=== PATIENT | male | born 1960 | race Caucasian/White ===

== ENCOUNTER 2021-07-20 15:25 | Emergency (ER) | payer OTHER, SELFPAY ==
--- NOTE | ~2021-07-20 | XR_ITS ---
EXAMINATION: XR chest 2V DATE: 07/20/2021 16:34 INDICATION: Shortness of breath TECHNIQUE: frontal and lateral views of the chest were obtained. COMPARISON: None FINDINGS: There are few scattered bilateral calcified pulmonary nodules consistent with old granulomatous disea se. No other airspace opacities, pulmonary edema, pleural effusion or pneumothorax. The cardiomediast inal silhouette is normal. Mild thoracic spondylosis. IMPRESSION: 1. No acute cardiopulmonary disease. Reviewed, dictated and finalized at location B. [facility]
[2021-07-20 15:36] VITALS: BP 111/76; PULSE 102; RESP 24; TEMP 37.2; O2SAT 99
--- NOTE | 2021-07-20 16:34 | ED.URI ---
HPI - URI/Sore Throat General Chief Complaint: Upper Respiratory Infection Stated Complaint: cough,chest pain Source: patient, family and RN notes reviewed Mode of arrival: ambulatory History of Present Illness HPI Narrative: This is a 60-year-old male who presented to urgent care with complaints of shortness of breath, cough productive, rib discomfort due to coughing or with deep breathing, and headache. According to patient he did a telehealth visit online and was prescribed doxycycline for upper respiratory infections he was unable to get his doxycycline which was ordered on Friday because it was supposed to come through the mail. Patient is very anxious, he has refused to be tested for Covid or pneumonia. He was instructed several times to keep his mass in place. The patient denies CP, palpitation, extremity numbness, lightheadedness, dizziness, constipation, diarrhea, chills, or fever. Related Data Allergies Allergy/AdvReac Type Severity Reaction Status Date / Time naproxen [From Naprosyn] Allergy Rash Verified 07/20/21 15:50 Review of Systems Review of Systems: A 14 organ system Review of Systems was performed and pertinent positives included in the HPI, otherwise remaining ROS is negative. [facility] Family History Family History (Updated 07/20/21 @ 16:36 by SERGE Daly-C) Other Family history non-contributory Exam Narrative: GENERAL: This is a well-nourished, well-developed patient, in no apparent distress. HEAD: normocephalic, atraumatic. EYES: PERRL. Sclera clear/white. Vision is grossly intact. EARS: External ears normal, auditory canals clear and without drainage, TMs normal without perforation. Hearing grossly intact. NOSE: External nose normal with no obvious nasal discharge, nares without redness, no rhinorrhea. THROAT: Mucous membranes moist, posterior pharynx clear. NECK: Neck supple, non-tender without lymphadenopathy, masses or thyromegaly. CARDIOVASCULAR: Regular rate and rhythm without murmurs, gallops, or rubs. RESPIRATORY: Clear to auscultation. Breath sounds equal bilaterally. No wheezes, rales, or rhonchi. GASTROINTESTINAL: Abdomen soft, non-tender, nondistended. Bowel sounds are active. No hepato-splenomegaly, or palpable masses. No guarding. SKIN: warm, intact with no suspicious lesions or rash, good texture and turgor. NEURO: awake, alert, and oriented to person, place and time. There were no obvious focal neurologic abnormalities. Steady gait EXTREMITIES: Normal range of motion. No edema. No calf tenderness. Negative Homans sign bilaterally. BACK: Nontender without deformity or crepitance. No flank tenderness. Course Vital Signs Vital signs: Vital Signs Temperature 98.9 F 07/20/21 15:36 Pulse Rate 102 H 07/20/21 15:36 Respiratory Rate 24 H 07/20/21 15:36 Blood Pressure 111/76 07/20/21 15:36 Pulse Oximetry 99 07/20/21 15:36 Temperature 98.9 F 07/20/21 15:36 Pulse Rate 102 H 07/20/21 15:36 Respiratory Rate 24 H 07/20/21 15:36 Blood Pressure 111/76 07/20/21 15:36 Pulse Oximetry 99 07/20/21 15:36 MDM - URI/Sore Throat Differential Diagnosis Differential diagnosis: Likely upper respiratory infection, viral infection, bronchitis, influenza and pharyngitis Discharge Plan Discharge Clinical Impression: Upper respiratory infection Qualifiers: URI type: unspecified URI Qualified Code(s): J06.9 - Acute upper respiratory infection, unspecified Patient Disposition: Home, Self-Care Condition: Stable Instructions: Antibiotic Form, Upper Respiratory Infection (ED) Additional Instructions: Increase fluids especially juices and water [id number] cough and cold medicine of your choice for your symptoms Prescription cough medicine as directed--caution drowsiness and no driving or alcohol Cough tablets as directed for cough--do not bite, chew or suck on--swallow whole Continue your inhaler/nebulizer as directed Steroids as directed--take with f
== END 2021-07-20 16:45 | disposition home or self-care (01) ==
PROVIDERS: Emergency Provider Nurse Practitioner; PCP Family Medicine
DX: J06.9 Acute upper respiratory infection, unspecified (principal)
CPT/HCPCS: 71046; 99213; G0463

== ENCOUNTER 2021-08-13 13:24 | Emergency (ER) | payer BC, SELFPAY ==
[2021-08-13 13:32] VITALS: BP 114/69; PULSE 97; RESP 16; TEMP 36.8; O2SAT 98
--- NOTE | 2021-08-13 14:20 | ED.HA ---
HPI - Headache General Chief Complaint: Headache Stated Complaint: headache Time Seen by Provider: 08/13/21 14:21 Source: patient and family History of Present Illness HPI Narrative: Patient presents with a history of left-sided head pain since he had Covid before June. Patient denies any headache at this time. Patient states he took 3 ibuprofen earlier and that has relieved his pain. Patient denies any history of migraines denies any nausea denies any blurred vision denies any head injury. MD elicited complaint: headache Related Data Home Medications Medication Instructions Recorded Confirmed No Home Medications 08/13/21 08/13/21 Allergies Allergy/AdvReac Type Severity Reaction Status Date / Time naproxen [From Naprosyn] Allergy Rash Verified 08/13/21 13:49 Review of Systems Review of Systems: CONSTITUTIONAL: Denies fever, chills, or sweats. EYES: Denies visual changes, redness, or discharge. ENT: Denies rhinorrhea, congestion, sore throat, or otalgia. CARDIOVASCULAR: Denies chest pain, palpitations, or edema. RESPIRATORY: Denies cough or dyspnea. GASTROINTESTINAL: Denies abdominal pain, nausea, vomiting, or diarrhea. GENITOURINARY: Denies dysuria or hematuria. SKIN: Denies rash or itching. MUSCULOSKELETAL: Denies back pain, joint pain, or myalgia. NEUROLOGIC: Denies headache, numbness, or weakness. PSYCHIATRIC: Denies anxiety or depression. [facility] Family History Family History (Updated 07/20/21 @ 16:36 by JUDY Daly) Other Family history non-contributory Comments At time of signature, agree with nursing past medical, surgical, social and family history. There is no relevant family history pertinent to the presenting complaint Exam Narrative: GENERAL: Well-appearing, well-nourished, and in no acute distress. HEAD: Normocephalic, atraumatic. EYES: PERRLA and EOMI. ENT: Nares clear, no rhinorrhea or epistaxis. Mucous membranes moist. NECK: Supple. CHEST: Clear to auscultation. No respiratory distress. HEART: Regular rate and rhythm. No murmur heard. Normal peripheral pulses. ABDOMEN: Soft, nontender, nondistended, normal active bowel sounds. EXTREMITIES: Normal range of motion. No edema. SKIN: Warm, dry, no rash. NEURO: No focal deficits. Alert and oriented x3. SPEECH IS CLEAR. NO LANGUAGE DEFICITS. CRANIAL NERVES: PUPILS EQUAL, ROUND, AND REACTIVE TO LIGHT. VISUAL ALANIS FULL. EXTRA-OCULAR MOVEMENTS INTACT. NO NYSTAGMUS NOTED. FACIAL SENSATION INTACT TO LIGHT TOUCH. FACIAL MOVEMENT FULL AND SYMMETRIC. PALATE MIDLINE. TONGUE MIDLINE, MOVING EQUALLY IN BOTH DIRECTIONS. UVULA IS MIDLINE. SHOULDER SHRUG EQUAL ON BOTH SIDES. BILATERAL HAND GRASP 5/5. GAIT NORMAL. HEEL TO TOE AND TANDEM WALK NORMAL. FINGER TO NOSE NORMAL. NEG ROMBERG. [place] Coma Scale Eye Opening: Spontaneous 4 [place] Coma Scale Motor: Obeys Commands 6 [place] Coma Scale Verbal: Oriented 5 [place] Coma Scale Total 15 Course Course Level of Care: Express Care Visit Vital Signs Vital signs: Vital Signs Temperature 36.8 C 08/13/21 13:32 Pulse Rate 97 08/13/21 13:32 Respiratory Rate 16 08/13/21 13:32 Blood Pressure 114/69 08/13/21 13:32 Pulse Oximetry 98 08/13/21 13:32 Temperature 36.8 C 08/13/21 13:32 Pulse Rate 97 08/13/21 13:32 Respiratory Rate 16 08/13/21 13:32 Blood Pressure 114/69 08/13/21 13:32 Pulse Oximetry 98 08/13/21 13:32 Critical dx considered and discussed with pt. Educated patient on red flag s/s and to go to ED if s/s occur. Discussed with pt when to return to Express Care or primary care provider. Pt gave verbal undertstanding, all questions were answered, and pt was agreeable to plan Discussed need for CAT scan of head due to no history of migraines discussed red flags with patient and . Patient declined transfer to emergency room states they will follow-up with primary care provider for further evaluation treat MDM - Headache Differential Diagnosis Diffe
== END 2021-08-13 14:32 | disposition home or self-care (01) ==
PROVIDERS: Emergency Provider Nurse Practitioner Family; PCP Family Medicine
DX: R51.9 Headache, unspecified (principal)
CPT/HCPCS: 99211; G0463

== ENCOUNTER 2022-11-19 11:02 | Outpatient (CLI) | payer OTHER, SELFPAY ==
[2022-11-19 18:36] LABS: Alanine Aminotransferase 29 U/L (6-50); Albumin Level 4.7 g/dL (3.5-5.1); Alkaline Phosphatase 95 U/L (38-126); Anion Gap 7 mmol/L (8-16); Aspartate Amino Transferase 51 U/L (17-59); Bilirubin,Total 0.8 mg/dL (0.2-1.3); Blood Urea Nitrogen 12 mg/dL (9-20); Calcium 8.9 mg/dL (8.4-10.2); Carbon Dioxide 32 mmol/L (22-30); Chloride 99 mmol/L (98-107); Estimated Glomerular Filt Rate > 60; Glucose 92 mg/dL (65-110); Potassium 4.4 mmol/L (3.4-5.0); Sodium 138 mmol/L (137-145)
[2022-11-19 18:40] LABS: Basophils Percent Auto 0.4 % (0.2-1.2); Eosinophils Absolute Auto 0.1 K/mm3 (0-0.3); Eosinophils Percent Auto 1.4 % (0-4.4); Hematocrit 46.6 % (42.0-52.0); Hemoglobin 15.4 g/dL (14.0-18.0); Immature Granulocyte Absolute 0.01 K/mm3 (0.00-0.031); Immature Granulocyte Percent A 0.2 % (0-0.5); Lymphocytes Absolute Auto 1.14 K/mm3 (0.9-3.2); Lymphocytes Percent Auto 23.5 % (18.3-44.2); Mean Corpuscular Hemoglobin 30.4 pg (26-34); Mean Corpuscular Volume 91.9 fl (80-100); Mean Platelet Volume 10.4 fl (7.4-10.4); Monocytes Absolute Auto 0.5 K/mm3 (0.1-0.6); Monocytes Percent Auto 10.5 % (2.6-8.5); Neutrophils Absolute Auto 3.1 K/mm3 (1.3-6.7); Platelet Count Result 216 k/mm3 (150-375); Red Blood Count 5.07 M/mm3 (4.6-6.20); White Blood Count 4.9 K/mm3 (4.5-10.0)
[2022-11-19 18:43] LABS: Cholesterol 170 mg/dL (0-200); HDL Direct 51 mg/dL; Triglycerides 106 mg/dL (<150)
[2022-11-19 19:06] LABS: LDL Cholesterol Direct 92 mg/dL
[2022-11-19 19:07] LABS: Prostate Specific Antigen 1.5 ng/mL (< OR = 4.0)
== END 2022-11-19 11:03 | disposition home or self-care (01) ==
PROVIDERS: PCP Family Medicine; Visit Provider Family Medicine
DX: Z00.00 Encounter for general adult medical examination without abnormal findings (principal); Z12.5 Encounter for screening for malignant neoplasm of prostate; Z79.899 Other long term (current) drug therapy
CPT/HCPCS: 36415; 80053; 80061; 84153; 85025; G0103

== ENCOUNTER 2023-11-24 11:05 | Outpatient (CLI) | payer OTHER, SELFPAY ==
[2023-11-24 19:21] LABS: Hematocrit 46.3 % (42.0-52.0); Hemoglobin 15.2 g/dL (14.0-18.0); Mean Corpuscular HGB Conc 32.8 g/dl (32-36); Mean Corpuscular Hemoglobin 29.5 pg (26-34); Mean Corpuscular Volume 89.7 fl (80-100); Mean Platelet Volume 10.4 fl (7.4-10.4); Platelet Count Result 230 k/mm3 (150-375); Red Blood Count 5.16 M/mm3 (4.6-6.20); Red Cell Distribution Width 12.8 % (11.5-14.5); White Blood Count 4.9 K/mm3 (4.5-10.0)
[2023-11-24 22:06] LABS: Alanine Aminotransferase 27 U/L (6-50); Albumin Level 4.7 g/dL (3.5-5.1); Alkaline Phosphatase 76 U/L (38-126); Anion Gap 10 mmol/L (4-12); Aspartate Amino Transferase 51 U/L (17-59); Bilirubin,Total 0.8 mg/dL (0.2-1.3); Blood Urea Nitrogen 20 mg/dL (9-20); Calcium 9.5 mg/dL (8.4-10.2); Carbon Dioxide 25 mmol/L (22-30); Chloride 104 mmol/L (98-107); Estimated Glomerular Filt Rate > 60; Glucose 86 mg/dL (65-110); Potassium 4.3 mmol/L (3.4-5.0); Sodium 139 mmol/L (137-145)
[2023-11-24 22:34] LABS: Prostate Specific Antigen 1.8 ng/mL (< OR = 4.0)
[2023-11-30 08:13] LABS: Testosterone Free 67.6 pg/mL (35.0-155.0); Testosterone Total 531 ng/dL (250-1100)
== END 2023-11-24 11:06 | disposition home or self-care (01) ==
PROVIDERS: PCP Family Medicine; Visit Provider Family Medicine
DX: H53.9 Unspecified visual disturbance (principal); Z12.5 Encounter for screening for malignant neoplasm of prostate
CPT/HCPCS: 36415; 80053; 84153; 84402; 84403; 85027; G0103

== ENCOUNTER 2024-12-08 08:07 | Outpatient (CLI) | payer OTHER, SELFPAY ==
--- OUTSIDE RECORDS SUMMARY | 2024-12-08 08:11 | XMS_ITS | Clinical Summary ---
Author Organization [facility] Address [address] 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 This disclosure is being madepursuant to the Care Everywhere program and may not contain all information available regarding this patient. Last updated 18.[facility] Allergies No known active allergies Medications * Be aware that medications may not be up to date on this document. Alwaysverify current medications with the patient. 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[employer]): - Flaring - Discussed diagnosis, etiology, typical course, and treatment options - Start clobetasol 0.05% ointment to plaques BID PRN - Referral to Rheum to r/o PsA Anal fissure 08/08/2009 Thrombosed external hemorrhoids 08/08/2009 Social History Tobacco Use Types Packs/Day Years Used Date Smoking Tobacco: Never Smokeless Tobacco: Never Sex and Gender Information Value Date Recorded Sex Assigned at Not on file Legal Sex 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[employer] Gender Identity Not on file Sexual Orientation Not on file Plan of Treatment Health Maintenance Due Date Last Done Comments COLOGUARD (AGES 45-75) - COL ON CA SCREENING 1962 COLON MONITORING 1962 COLONOSCOPY - COLON CA SCREENING 1962 CT COLONOGRAPHY - COLON CA SCREENING 1962 Colorectal Cancer Screening 1962 FIT - COLON CA SCREENING 1962 FLEX SIG - COLON CA SCREENING 1962 LIPID TESTING 1962 HIV SCREENING 1977 HEPATITIS C SCREENING 07/23/1980 DTAP/TDAP/TD VACCINES (1 - Tdap) 1981 PNEUMOCOCCAL VACCINE 50+ (1 of 1 - PCV) 2012 ZOSTER VACCINE (1 of 2) 2012 COVID-19 VACCINE (1 - 2023-2 5 season) 2024 DEPRESSION SCREENING 08/11/2024 INFLUENZA VACCINE (Season Ended) 2025 Respiratory Syncytial Virus (RSV) Vaccine Pt: or over 60 yrs (1 - 1-dose 75+ series) 2037 HEPATITIS B VACCINE Aged Out No longe r eligible based on patient's age to complete this topic HIB VACCINE Aged Out No longer eligi ble based on patient's age to complete this topic HPV VACCINE Aged Out No longer eligi ble based on patient's age to complete this topic MENINGOCOCCAL (Group B) VACC INE SHARED DECISION-MAKING Aged Out No longer eligibl e based on patient's age to complete this topic MENINGOCOCCAL GROUPS A/C/Y/W VACCINE Aged Out No longer eligible b ased on patient's age to complete [place] [address] [place] [address] [employer] Care Teams High Raw Sugar Boiler Relationship Specialty Start Date End Date Emmanuel Dias MD [address] [place] [id number] PCP - General 09/04/20
--- OUTSIDE RECORDS SUMMARY | 2024-12-08 08:11 | XMS_ITS | Clinical Summary ---
Author Organization [facility] Address [address] [place] [phone] Care Team Providers Care Track Laying Equipment Operator Name Role Phone Edmund Montalvo MD Primary Care Provider [phone] Allergies No known active allergies Medications ibuprofen (ADVIL,MOTRIN) 800 mg tabletIndicati ons:Closed head injury, initial encounter,Post concussion syndrome Take 1 tablet (800 mg total) by mouth 3 (three) times a day Take as directed for pain and headache. Collaborating physician Yannick Ríos MD 30 tablet 3 Active Active Problems Problem Noted Date Diagnosed Date Posterior vitreous detachment of left eye 2024 Assessment & Plan (12/02/2024 8:46 AM CDT): New floaters 11/17, seen in ED with PVD OS. 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 without retinal tear, retinal detachment, or heme Recommendations: - Discussed risk of retinal tear and detachment and return precautions for increased flashes / floaters, onset of curtains, loss of vision - Patient understands importance of continued outpatient follow-up with serial dilated fundus exam - Return 4-6 weeks for repeat DFEx OS, then resume normal care with local bait maker Closed head injury 01/23/2023 Postconcussion syndrome 01/23/2023 Anal fissure 08/08/2009 Thrombosed external hemorrhoids 08/08/2009 Encounters Date Type Department Care Team Description 12/02/2024 7:45 AM CDT Office Visit [facility] [address] [place] [address] 1st [place] [phone] Shabnam Mckay MD Posterior vitreous detachment of left eye 11/17/2024 Telephone [facility] [address] [place] [phone] Brock Bravo MD 11/16/2024 9:41 PM CDT - 11/17/2024 12:35 AM CDT Emergency [facility] Emergency Department [address] [place] [address] Ryne Chong MD Mendelsohn, Marc, MD Posterior vitreous detachment of left eye (Primary Dx) Discharge Disposition: Discharge to home or self care 11/16/2024 5:20 PM CDT - 11/16/2024 7:31 PM CDT Emergency [facility] Emergency Department 1 [place] [address] Dale Mercado MD Eye problem (Primary Dx) Discharge Disposition: Discharge to a critical access hospital 11/16/2024 Ophth Exam [facility] [address] [place] [phone] Brock Bravo MD 11/16/2024 Telephone [facility] [address] [place] [phone] John Evans MD from Last 3 Months Surgical History Surgery Date Site/Laterality Comments ANTERIOR CRUCIATE LIGAMENT REPAIR Left Social History Tobacco Use Types Packs/Day Years Used Date Smoking Tobacco: Former Alcohol Use Standard Drinks/Week Comments Not Currently 0 (1 standard drink = 0.6 oz pur e alcohol) Personal Safety Answer Date Recorded Have you ever been in or are you currently in a harmful physical or emotional relationship or is someone making you feel afraid or unsafe? 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 Gender Identity Not on file Sexual Orientation Not on file Obstetrics History Last Filed Vital Signs Vital Sign Reading Time Taken Comments Blood Pressure 115/72 11/16/2024 9:18 PM CDT Pulse 95 11/16/2024 9:11 PM CDT Temperature 37 C (98.6 F) 11/16/2024 9:11 PM CDT Respiratory Rate 16 11/16/2024 9:11 PM CDT Oxygen Saturation 96% 11/16/2024 9:11 PM CDT Inhaled Oxygen Concentration - - Weight 87.1 kg (192 lb) 11/16/2024 9:11 PM CDT Height 188 cm (6' 2 ) 11/16/2024 9:11 PM CDT Body Mass Index 24.65 11/16/2024 9:11 PM CDT Plan of Treatment Health Maintenance Due Date Last Done Comments Colon Cancer Screening-Colonoscopy 1962 Depression Screening 1962 Hepatitis C Screening 1962 Prostate Cancer Screening-PSA 1962 Regular Well Visit/Exam 18-64 1980 DTaP/Tdap/Td Vaccine (1 - Tdap) 03/09/1999 03/08/1999 Zoster Vaccine (1 of 2) 2012 Influenza Vaccine (Season Ended) 2025 Hepatitis B Screening Completed 02/22/2003 , 01/10/2003 Pneumococcal vaccine <65 Aged Out No longer eligible based on patient's age to complete this topic Procedures Procedure Name Priority Date/Time Associated Diagnosis Comments CT HEAD WO CONTRAST ED 11/16/2024 6 :12 PM CDT EGFR STAT 11/16/2024 6:01 PM CDT DIFFERENTIAL AUTO STAT 11/16/2024 6:0 1 PM CDT ERYTHROCYTE SEDIMENTATION RATE STAT 11/16/2024 6:01 PM CDT CRP (ACUTE PHASE) STAT 11/16/2024 6:0 1 PM CDT CBC WITH AUTO DIFFERENTIAL STAT 11/16/2024 6:01 PM CDT COMPREHENSIVE METABOLIC PANEL STAT 11/16/2024 6:01 PM CDT from Last 3 Months Results * CT Head WO Contrast (11/16/2024 6:12 PM CDT) Anatomical Region Laterality Modality Head and Neck N/A Computed Tomogra phy 11/16/2024 6:40 PM CDT Narrative 11/16/2024 6:44 PM CDT EXAM DESCRIPTION: CT HEAD WO CONTRAST REASON FOR STUDY: Seeing Black Spots and spider web like lines in left eye since 4 pm today, struck in left orthodoxy 2 yrs ago with baseball. TECHNIQUE: Axial images acquired through the brain without intravenous contrast. Images stored on PACS. Automated exposure control was used as a dose optimization technique for this examination. COMPARISON: 01/23/2023. FINDINGS: BRAIN: No acute intraparenchymal hemorrhage, cerebral edema, hydrocephalus, mass, or mass effect. EXTRA-AXIAL SPACES: No extra-axial fluid collection or mass. CALVARIUM: No acute skull base or calvarial abnormality. SINUSES/MASTOIDS: There is mucosal thickening in the right maxillary sinus. ORBITS: No significant abnormality. OTHER: No other significant abnormality. IMPRESSION: No evidence of an acute intracranial abnormality. Right maxillary sinus mucosal thickening. THIS IS AN ELECTRONICALLY VERIFIED FINAL REPORT 11/16/2024 6:44 PM - Electronically signed by Jimenez Laws M.D. CH: Report ID: [id number] Reading Location: [id number] Procedure Note Jimenez Laws Jr., MD - 11/16/2024 EXAM DESCRIPTION: CT HEAD WO CONTRAST REASON FOR STUDY: Seeing Black Spots and spider web like lines in left eye since 4 pm today, struck in left orthodoxy 2 yrs ago with baseball. TECHNIQUE: Axial images acquired through the brain without intravenous contrast. Images stored on PACS. Automated exposure control was used asa dose optimization technique for this examination. COMPARISON: 01/23/2023. FINDINGS: BRAIN: No acute intraparenchymal hemorrhage, cerebral edema,hydrocephalus, mass, or mass effect. EXTRA-AXIAL SPACES: No extra-axial fluid collection or mass. CALVARIUM: No acute skull base or calvarial abnormality. SINUSES/MASTOIDS: There is mucosal thickening in the right maxillarysinus. ORBITS: No significant abnormality. OTHER: No other significant abnormality. IMPRESSION: No evidence of an acute intracranial abnormality. Right maxillary sinus mucosal thickening. THIS IS AN ELECTRONICALLY VERIFIED FINAL REPORT 11/16/2024 6:44 PM - Electronically signed by Jimenez Laws M.D. CH: Report ID: [id number] Reading Location: [place] [address] Dale Mercado MD IMG CT PROCEDURES Final Resu lt * eGFR (11/16/2024 6:01 PM CDT) eGFR 67 >=60 mL/min/1. 73 m2 Comment: Interpretive Data Reference Interval Normal >/= 90 mL/min/1.73m2 Mildly decreased* 60 - 89 mL/min/1.73m2 Mildly to moderately decreased 45 - 59 mL/min/1.73m2 Moderately to severely decreased 30 - 44 mL/min/1.73m2 Severely decreased 15 - 29 mL/min/1.73m2 Kidney Failure < 15 mL/min/1.73m2 *Relative to young adult level Estimated glomerular filtration rate is determined by the 2020 CKD-EPI equation recommended by the National Kidney Foundation (A Unifying Approach to GFR Estimation: Recommendations of the NKF-ASK Task Force on Reassessing the Inclusion of Race in Diagnosing Kidney Disease, JASN 2020). The CKD-EPI equation should not be used for patients with unstable renal function and has not been validated in children and those over 70. Current interpretive data was last reviewed 2021. Blood 11/16/2024 6:01 PM CDT 11/16/2024 6:04 PM CDT Dale Mercado MD LAB BLOOD ORDERABLES Final R esult [facility]) 8 [facility] Department [place] [address] * Differential, auto (11/16/2024 6:01 PM CDT) Neutrophil abs 3.37 1.50 - 6.50 K/cumm Imm gran abs 0.01 0.00 - 0.10 K/cumm [facility] ([facility]) Lymphocyte abs 1.38 0.80 - 3.30 K/cumm [facility] ([place]) Monocyte abs 0.53 0.20 - 0.80 K/cumm [facility] ([place]) Eosinophil abs 0.05 0.00 - 0.50 K/cumm [facility] ([place]) Basophil abs 0.02 0.00 - 0.10 K/cumm [facility] ([place]) Neutrophil pct 62.9 % [facility] ([facility]) Comment: Interpretive Data Percent cell count reference ranges are not reported, since discordance with absolute values may lead to misinterpretation of CBC data. Current Interpretive Data was last revised on 2017. Imm gran pct 0.2 % [facility] ([facility]) Comment: Interpretive Data Percent cell count reference ranges are not reported, since discordance with absolute values may lead to misinterpretation of CBC data. Current Interpretive Data was last revised on 2017. Lymphocyte pct 25.7 % [facility] ([facility]) Comment: Interpretive Data Percent cell count reference ranges are not reported, since discordance with absolute values may lead to misinterpretation of CBC data. Current Interpretive Data was last revised on 2017. Monocyte pct 9.9 % [facility] ([facility]) Comment: Interpretive Data Percent cell count reference ranges are not reported, since discordance with absolute values may lead to misinterpretation of CBC data. Current Interpretive Data was last revised on 2017. Eosinophil pct 0.9 % [facility] ([facility]) Comment: Interpretive Data Percent cell count reference ranges are not reported, since discordance with absolute values may lead to misinterpretation of CBC data. Current Interpretive Data was last revised on 2017. Basophil pct 0.4 % [facility] ([facility]) Comment: Interpretive Data Percent cell count reference ranges are not reported, since discordance with absolute values may lead to misinterpretation of CBC data. Current Interpretive Data was last revised on 2017. Blood 11/16/2024 6:01 PM CDT 11/16/2024 6:04 PM CDT Dale Mercado MD LAB BLOOD ORDERABLES Final R esult [facility] ([place]) 1 [facility] [place] [address] * CBC with auto differential (11/16/2024 6:01 PM CDT) WBC 5.36 3.80 - 9.90 K/cumm Hgb 15.8 13.0 - 17.5 g/dL [facility] ([place]) Hct 45.4 38.9 - 50.3 % [facility] ([place]) Plt 235 150 - 400 K/cumm [facility] ([place]) MPV 9.5 9.1 - 12.3 fL [facility] ([place]) RBC 5.28 4.30 - 5.80 M/cumm [facility] ([place]) MCV 86.0 81.3 - 96.4 fL [facility] ([place]) MCH 29.9 27.1 - 33.3 pg [facility] ([place]) MCHC 34.8 32.3 - 35.7 g/dL [facility] ([place]) RDW CV 12.5 11.1 - 14.9 % [facility] ([place]) RDW SD 39.1 35.7 - 48.1 fL [facility] ([place]) NRBC abs 0.00 0.00 - 0.01 K/cumm [facility] ([facility]) Blood 11/16/2024 6:01 PM CDT 11/16/2024 6:04 PM CDT Dale Mercado MD LAB BLOOD ORDERABLES Final R esult [facility] ([place]) 1 [facility] [place] [address] * Erythrocyte sedimentation rate (11/16/2024 6:01 PM CDT) Erythrocyte sedimentation rate 7 1 - 20 mm/hr Blood 11/16/2024 6:01 PM CDT 11/16/2024 6:04 PM CDT Dale Mercado MD LAB BLOOD ORDERABLES Final R esult [facility]) 1 [place] [address] * CRP (acute phase) (11/16/2024 6:01 PM CDT) CRP <3.0 <=10.0 mg/L Blood 11/16/2024 6:01 PM CDT 11/16/2024 6:04 PM CDT Dale Mercado MD LAB BLOOD ORDERABLES Final R esult Performing Organization Address City/[facility] Co de Phone Number [facility] ([facility]) [address] [place] [address] * Comprehensive metabolic panel (11/16/2024 6:01 PM CDT) Pathologist [facility] Sodium 136 135 - 145 mmol/L Potassium, pl 3.9 3.3 - 4.9 mmol/L [facility] ([facility]) Chloride 98 97 - 110 mmol/L [facility] ([place]) CO2 26 22 - 32 mmol/L [facility] ([place]) Anion gap 12 2 - 15 mmol/L [facility] ([place]) BUN 14 6 - 25 mg/dL [facility] ([facility]) Creatinine 1.22 0.80 - 1.30 mg/dL [facility] ([facility]) Glucose 100 70 - 199 mg/dL [facility] ([place]) Comment: Interpretive Data Fasting glucose >/= 126 mg/dl is diagnostic for diabetes. Fasting is defined as no caloric intake for at least 8 hours. Fasting glucose between 100 mg/dl to 125 mg/dl is diagnostic of prediabetes. In a patient with classic symptoms of hyperglycemia or hyperglycemic crisis, a random glucose >/= 200 mg/dl is diagnostic for diabetes. In the absence of unequivocal hyperglycemia, results should be confirmed by repeat testing. The classification and Diagnosis of Diabetes Diabetes Care 2021; 46: S19-S40. Current interpretive data was last revised 2022. Calcium 9.5 8.5 - 10.3 mg/dL [facility] ([facility]) Bilirubin, total 0.5 0.1 - 1.2 mg/dL [facility] ([place]) Protein, pl 7.6 6.5 - 8.5 g/dL [facility] ([place]) Albumin 4.7 3.5 - 5.0 g/dL [facility] ([place]) Alk phos 103 40 - 130 Units/L [facility] ([place]) ALT 18 7 - 55 Units/L [facility] ([place]) AST 19 10 - 50 Units/L [facility] ([place]) Blood 11/16/2024 6:01 PM CDT 11/16/2024 6:04 PM CDT Dale Mercado MD LAB BLOOD ORDERABLES Final R esult [facility] ([place]) 1 [facility] Department [place] [address] from Last 3 Months Insurance [facility] Member Subscriber Plan / Payer (Ef fective 2022-Present) Name:Ed Wells Relation to Subscriber:Self Name:Ed Wells Payer ID:[id number] (NAIC) Type:MEDICARE RISK OTHER Address: [address] [facility] Care Teams Track Laying Equipment Operator Relationship Specialty Start Date End Date Edmund Montalvo MD [address] [place] [address] PCP - General Family Practice 11/16/24
--- OUTSIDE RECORDS SUMMARY | 2024-12-08 08:11 | XMS_ITS | Clinical Summary ---
Author Organization [facility] Address [address] [facility] [place] [address] Phone Care Team Providers Care Dip Guider Stoves Name Role Phone Gucci Ladd MD Unavailable [phone] Provider, None Primary Care Provider Unavailabl e Allergies Active Allergy Reactions Criticality Noted Date Comments Naproxen Rash 09/25/2022 Medications ofloxacin (OCUFLOX) 0.3 % Solution Place 1 Drop in affected eye(s) 4 times daily. 5 mL 11/01/2024 Active Active Problems Problem Noted Date Diagnosed Date Tinnitus of both ears 09/25/2022 Irritant contact dermatitis 09/25/2022 Other psoriasis 09/11/2020 Overview (09/25/2022): Last Assessment & Plan: - Flaring - Discussed diagnosis, etiology, typical course, and treatment options - Start clobetasol 0.05% ointment to plaques BID PRN - Referral to Rheum to r/o PsA Encounters Date Type Department Care Team Description 11/01/2024 4:20 PM CDT [facility] [place] [address] [place] [phone] Ashleigh Koch APRN, ZAC Eye irritation (Primary Dx) Discharge Disposition: Discharged to home or Selfcare 11/01/2024 Travel 09/09/2024 [facility] [address] [place] [phone] Ashleigh Koch, SILVER CLEANER, CONCRETE BUCKET HOOKER XR CHEST 2 VIEWS from Last 3 Months Immunizations Immunization Administration Dates Next Due Hepatitis A And Hepatitis B Vaccine 07/18/2003 Hepatitis A Vaccine 02/22/2003,01/10/2003 Hepatitis B Vaccine 02/22/2003,01/10/2003 Inactivated Polio Vaccine 01/10/2003 TD VACCINE 03/08/1999 Family History Medical History Relation Name Comments Abdominal Aortic Aneurysm Father No Known Problems Mother Relation Name Status Comments Father Mother Alive Social History Tobacco Use Types Packs/Day Years Used Date Smoking Tobacco: Never Smokeless Tobacco: Never Tobacco Cessation:Counseling Given: Not Answered Alcohol Use Standard Drinks/Week Comments Never 0 (1 standard drink = 0.6 oz pur e alcohol) AUDIT-C Answer Date Recorded Q1: How often do you have a drink containing alc ohol? Never 01/26/2020 Average Number of Drinks Not on file 020 Frequency of Binge Drinking Not on file 01/09 Sex and Gender Information Value Date Recorded Sex Assigned at Not on file Legal Sex Male 2:23 PM CDT Gender Identity Not on file Sexual Orientation Not on file Last Filed Vital Signs Vital Sign Reading Time Taken Comments Blood Pressure 96/76 11/01/2024 4:31 PM CDT Pulse 93 11/01/2024 4:31 PM CDT Temperature 36.6 C (97.9 F) 11/01/2024 4:31 PM CDT Respiratory Rate 16 11/01/2024 4:31 PM CDT Oxygen Saturation 96% 11/01/2024 4:31 PM CDT Inhaled Oxygen Concentration - - Weight 89.4 kg (197 lb 2 oz) 11/01/2024 4:31 PM CDT Height 188 cm (6' 2 ) 09/25/2022 2:56 PM GTA Body Mass Index 25.31 09/25/2022 2:56 PM GTA Plan of Treatment Health Maintenance Due Date Last Done Comments Hepatitis C Virus (HCV) Screening 1962 TdaP Immunization 1962 Colonoscopy 2007 Colorectal Cancer Screening 2007 Cologuard 2012 Immunochemical Fecal Occult Blood 2012 Pneumococcal Immunization (5 0+ years) (1 of 1 - PCV) 2012 Zoster Immunization (1 of 2) 2012 Influenza Immunization (#1) 2024 SARS-COV-2 Immunization (1 - 2023- season) 2024 Respiratory Syncytial Virus (RSV) Immunization (Adult) (1 - 1-dose 75+ series) 2037 DTaP/Tdap/Td Immunization Discontinued 03/08/1999 Hepatitis B Immunization Completed 003, 02/22/2003, 01/10/2003 PSA Discussion Completed 09/25/2022 Meningococcal Immunization (ACWY) Aged Out No longer eligible based on patient's age to complete this topic Rotavirus Immunization Aged Out No lo nger eligible based on patient's age to complete [place] [address] [employer] MEDICARE C ESSENCE Care Teams Dip Guider Stoves Relationship Specialty Start Date End Date Provider, None [place] PCP - General 11/01/24 Gucci Ladd MD [address] [place] [address] Consulting Physician Dermatology 09/25/22
--- OUTSIDE RECORDS SUMMARY | 2024-12-08 08:11 | XMS_ITS | Referral Summary ---
Author Organization [facility] Address [address] [place] [phone] Care Team Providers Care Mechanical Product Design Engineer Name Role Phone Edmund Montalvo MD Primary Care Provider [phone] Encounters Date Type Department Care Team Description 12/02/2024 7:45 AM CDT Office Visit [facility] Ophthalmology [address] [place] [phone] Shabnam Mckay MD Posterior vitreous detachment of left eye 11/17/2024 Telephone [facility] Ophthalmology [address] [place] [phone] Brock Bravo MD 11/16/2024 9:41 PM CDT - 11/17/2024 12:35 AM CDT Emergency [facility] Emergency Department [address] [place] [phone] Ryne Chong MD Mendelsohn, Marc, MD Posterior vitreous detachment of left eye (Primary Dx) Discharge Disposition: Discharge to home or self care 11/16/2024 Ophth Exam [facility]mology [address] [place] [phone] Brock Bravo MD 11/16/2024 Telephone [facility] Op[facility]mology [address] [place] [phone] John Evans MD 11/16/2024 5:20 PM CDT - 11/16/2024 7:31 PM CDT Emergency [facility] Emergency Department [address] [place] [phone] Dale Mercado MD Eye problem (Primary Dx) Discharge Disposition: Discharge to a critical access hospital from Last 3 Months Allergies No known active allergies Medications ibuprofen [...] 11/17, seen in ED with PVD OS. 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 TECHNIQUE: Axial [...] by Jimenez Laws M.D. CH: Report ID: [id number] Reading Location: [id number] Procedure Note Jimenez Laws Jr., MD - 11/16/2024 EXAM DESCRIPTION: CT HEAD WO CONTRAST REASON FOR STUDY: Seeing Black Spots and spider web like lines in left eye since 4 pm today, struck in left sikhism 2 yrs ago with baseball. TECHNIQUE: Axial [...] Electronically signed by Jimenez Laws M.D. CH: CHENG Report ID: [id number] Reading Location: [id number] Dale Mercado MD IMG CT PROCEDURES Final [...] MD LAB BLOOD ORDERABLES Final R esult [facility] ([place]) 1 [facility] Department of Laboratories [place], [place] [id number] * Differential, auto (11/16/2024 6:01 PM CDT) [...] 6:01 PM CDT 11/16/2024 6:04 PM CDT us Dale Mercado MD LAB BLOOD ORDERABLES Final R esult [facility] ([facility]) 1 [facility] Department [place] [address] * CBC with auto differential (11/16/2024 6:01 PM CDT) WBC 5.36 3.80 - 9.90 K/cumm Hgb 15.8 13.0 - 17.5 g/dL [facility] ([facility]) Hct 45.4 38.9 - 50.3 % [facility] ([place]) Plt 235 150 - 400 K/cumm [facility] ([place]) MPV 9.5 9.1 - 12.3 fL [facility] ([place]) RBC 5.28 4.30 - 5.80 M/cumm [facility] ([place]) MCV 86.0 81.3 - 96.4 fL [facility] ([place]) MCH 29.9 27.1 - 33.3 pg [facility] ([place]) MCHC 34.8 32.3 - 35.7 g/dL [facility] ([place]) RDW CV 12.5 11.1 - 14.9 % [facility] ([place]) RDW SD 39.1 35.7 - 48.1 fL [facility] ([place]) NRBC abs 0.00 0.00 - 0.01 K/cumm [facility] ([facility]) Blood 11/16/2024 6:01 PM CDT 11/16/2024 6:04 PM CDT Dale Mercado MD LAB BLOOD ORDERABLES Final R esult Performing Organization Address City/[facility]/ZIP Co de Phone Number [facility] ([place]) 1 [facility] [place] [address] * Erythrocyte sedimentation rate (11/16/2024 6:01 PM CDT) Erythrocyte sedimentation rate 7 1 - 20 mm/hr Blood 11/16/2024 6:01 PM CDT 11/16/2024 6:04 PM CDT Dale Mercado MD LAB BLOOD ORDERABLES Final R esult [facility] ([place]) 1 [facility] [place] [address] * CRP (acute phase) (11/16/2024 6:01 PM CDT) CRP <3.0 <=10.0 mg/L Blood 11/16/2024 6:01 PM CDT 11/16/2024 6:04 PM CDT us Dale Mercado MD LAB BLOOD ORDERABLES Final R esult [facility] ([place]) 1 [facility] Department [place] [address] * Comprehensive metabolic panel (11/16/2024 6:01 PM CDT) Sodium 136 135 - 145 mmol/L Potassium, pl 3.9 3.3 - 4.9 mmol/L [facility] ([facility]) Chloride 98 97 - 110 mmol/L [facility] ([facility]) CO2 26 22 - 32 mmol/L [facility] ([place]) Anion gap 12 2 - 15 mmol/L [facility] ([place]) BUN 14 6 - 25 mg/dL [facility] ([place]) Creatinine 1.22 0.80 - 1.30 mg/dL [facility] ([facility]) Glucose 100 70 - 199 mg/dL [facility] ([facility]) Comment: Interpretive Data Fasting glucose >/= [...] MD LAB BLOOD ORDERABLES Final R esult [facility] ([place]) 1 [facility] Department of Laboratories [place] [phone] from Last 3 Months Insurance [facility] Member Subscriber Plan / Payer (Ef fective 2022-Present) Name:Ed Wells Relation to Subscriber:Self Name:Ed Wells Payer ID:[id number] (NAIC) Type:MEDICARE RISK OTHER Address: [address] [place] [address] Care Teams Mechanical Product Design Engineer Relationship Specialty Start Date End Date Edmund Montalvo MD [address] [place] [address] PCP - General Family Practice 11/16/24
--- OUTSIDE RECORDS SUMMARY | 2024-12-08 08:11 | XMS_ITS | Clinical Summary ---
Author Organization [facility] Address [address] Su: Epic Prelude ADT [place] [id number] Care Team Providers Care Staple Side Laster Name Role Phone Unavailable Primary Care Provider Unavailabl e Social History Tobacco Use Types Packs/Day Years Used Date Smoking Tobacco: Never Assessed Sex and Gender Information Value Date Recorded Sex Assigned at Not on file Legal Sex Male 11:34 PM CDT Gender Identity Not on file Sexual Orientation Not on file Plan of Treatment Health Maintenance Due Date Last Done Comments DTAP/TDAP/TD VACCINES (1 - Tdap) 1981 COLORECTAL SCREENING 2007 Colorectal Cancer Screening 2007 FIT-DNA Q 3 years 2007 FIT/FOBT Q 1 year 2007 Flex Sig/CT Colonography Q 5 years 2007 ZOSTER VACCINE (1 of 2) 2012 INFLUENZA VACCINE (#1) 2024 RSV VACCINE (60+ or ) (1 - 1-dose 75+ series) 2037
[2024-12-08 20:14] LABS: Basophils Percent Auto 0.6 % (0.2-1.2); Eosinophils Absolute Auto 0.1 K/mm3 (0-0.3); Eosinophils Percent Auto 1.6 % (0-4.4); Hematocrit 49.6 % (42.0-52.0); Hemoglobin 15.9 g/dL (14.0-18.0); Immature Granulocyte Absolute 0.02 K/mm3 (0.00-0.031); Immature Granulocyte Percent A 0.4 % (0-0.5); Lymphocytes Absolute Auto 1.32 K/mm3 (0.9-3.2); Lymphocytes Percent Auto 26.3 % (18.3-44.2); Mean Corpuscular HGB Conc 32.1 g/dl (32-36); Mean Corpuscular Hemoglobin 29.6 pg (26-34); Mean Corpuscular Volume 92.2 fl (80-100); Mean Platelet Volume 10.6 fl (7.4-10.4); Monocytes Absolute Auto 0.6 K/mm3 (0.1-0.6); Neutrophils Percent Auto 60.1 % (45.5-73.1); Platelet Count Result 234 k/mm3 (150-375); Red Blood Count 5.38 M/mm3 (4.6-6.20); Red Cell Distribution Width 13.2 % (11.5-14.5)
[2024-12-08 21:10] LABS: Vitamin D 25 Hydroxy 31.6 ng/mL
[2024-12-08 21:32] LABS: Alanine Aminotransferase 23 U/L (6-50); Albumin Level 4.6 g/dL (3.5-5.1); Alkaline Phosphatase 83 U/L (38-126); Anion Gap 6 mmol/L (4-12); Aspartate Amino Transferase 46 U/L (17-59); Bilirubin,Total 0.4 mg/dL (0.2-1.3); Blood Urea Nitrogen 18 mg/dL (9-20); Calcium 8.9 mg/dL (8.4-10.2); Carbon Dioxide 29 mmol/L (22-30); Chloride 103 mmol/L (98-107); Cholesterol 210 mg/dL (0-200); Estimated Glomerular Filt Rate > 60; Glucose 94 mg/dL (65-110); HDL Direct 51 mg/dL; Magnesium 2.5 mg/dL (1.6-2.3); Potassium 4.5 mmol/L (3.4-5.0); Sodium 138 mmol/L (137-145); Triglycerides 85 mg/dL (<150)
[2024-12-08 21:43] LABS: LDL Cholesterol Direct 114 mg/dL
[2024-12-10 07:33] LABS: CRP, High Sensitivity 0.4 mg/L
[2024-12-13 07:08] LABS: Apolipoprotein B 97 mg/dL
== END 2024-12-08 08:08 | disposition home or self-care (01) ==
PROVIDERS: PCP Family Medicine; Visit Provider Family Medicine
DX: F19.90 Other psychoactive substance use, unspecified, uncomplicated (principal); Z00.00 Encounter for general adult medical examination without abnormal findings; L98.9 Disorder of the skin and subcutaneous tissue, unspecified; K21.9 Gastro-esophageal reflux disease without esophagitis; Z79.899 Other long term (current) drug therapy
CPT/HCPCS: 36415; 80053; 80061; 82172; 82306; 82607; 83735; 85025; 86141